=== PATIENT | male | born 1925 | race Native Hawaiian/Other Pacific Islander ===

== ENCOUNTER 2017-04-15 09:17 | Outpatient (CLI) | payer OTHER ==
[~2017-04-15 09:17] MED LIST: ALLO300T23 PO; ENALAPRIL20 MG PO; LATANOPROST0.005 % OP; SIMV20TA2 PO; TAMS0.4C PO
[2017-04-15 09:34] LABS: PLATELET COUNT 212 K/uL (142-355)
[2017-04-15 10:11] LABS: POTASSIUM 4.4 mmol/L (3.6-5.2); SODIUM 134 mmol/L (136-145)
== END 2017-04-15 10:20 | disposition home or self-care (01) ==
LOC: LABW 09:17
PROVIDERS: Internal Medicine
DX: E78.00 Pure hypercholesterolemia, unspecified (principal); Z51.81 Encounter for therapeutic drug level monitoring; Z79.899 Other long term (current) drug therapy; E79.0 Hyperuricemia without signs of inflammatory arthritis and tophaceous disease; I10 Essential (primary) hypertension
CPT/HCPCS: 36415; 80053; 80061; 81000; 84443; 84550; 85027